=== PATIENT | female | born 1975 | race Caucasian/White ===

== ENCOUNTER 2018-02-17 10:18 | Emergency (ER) | payer BC, OTHER ==
[~2018-02-17] VITALS: Ht 157.5 cm; Wt 61.2 kg
--- NOTE | 2018-02-17 11:31 | ED Lower Extremity ---
General Chief Complaint: Lower Extremity Stated Complaint: LEGS SWELLING/ACHEY Nursing Triage Note: pt reports going to [place] on , and tuesday started to notice swelling and tenderness to Left Lower [place] area; pt reports no worsening, but no improvement in "aches" or swelling. Mild edema noted when compared to RLE. pt amb into exam room without difficulty. Nursing Sepsis Screen: No Definite Risk Source: patient Exam Limitations: no limitations History of Present Illness Date Seen by Provider: Feb 17, 2018 Time Seen by Provider: 11:27 Initial Comments This 43-year-old white female presents with a complaint of fullness and pain in her left calf after traveling by air back from [place] this last week. The patient has noted persistent aching in the calf. The patient has noted some mild edema in the left lower extremity when compared to the right. Patient has been able to weight-bear. She denies a history of blood clots. There is no family history of coagulopathies. Patient denies shortness of breath or chest pain. She has had no hemoptysis. Allergies and Home Medications Allergies Coded Allergies: No Known Drug Allergies (Unverified , 02/17/18) Home Medications No Active Prescriptions or Reported Meds Patient Home Medication List Home Medication List Reviewed: Yes Constitutional: No chills, No fever EENTM: No hearing loss Respiratory: No cough, No short of breath Cardiovascular: No chest pain Gastrointestinal: No abdominal pain, No nausea, No vomiting Genitourinary: No dysuria, No frequency : No Control/STD Prophylaxis: IUD Musculoskeletal: No back pain, No joint swelling Skin: No change in color, No rash Psychiatric/Neurological: Denies Anxiety, Denies Depressed Past Fhaawsr-[id number]-Yedndb Hx Patient Social History Alcohol Use: Rarely Uses Recreational Drug Use: No Smoking Status: Current Everyday Smoker Type Used: Cigarettes 2nd Hand Smoke Exposure: Yes Recent Foreign Travel: No Contact w/Someone Who Travel: No Recent Infectious Disease Expo: No Recent Hopitalizations: No Immunizations Up To Date Tetanus Booster (TDap): Less than 5yrs Seasonal Allergies Seasonal Allergies: Yes Past Medical History Tubal Ligation Respiratory: No Cardiac: No Neurological: Yes Headaches /Migraines : No FINE ARTIST History: Tubal Ligation Genitourinary: No Gastrointestinal: No Musculoskeletal: No Endocrine: No HEENT: No Cancer: No Psychosocial: No Integumentary: No Blood Disorders: No Physical Exam Vital Signs Vital Signs - First Documented 02/17/18 11:06 Temp 98.3 Pulse 95 Resp 18 B/P (MAP) 146/95 (112) Pulse Ox 97 O2 Delivery Room Air Capillary Refill : Less Than 3 Seconds General Appearance: WD/WN, no apparent distress HEENT: normal ENT inspection Neck: normal inspection Cardiovascular: regular rate, rhythm, other (there is slight edema of the left lower extremity below the knee when compared to the right.) Respiratory: chest non-tender, lungs clear, normal breath sounds, no respiratory distress, no accessory muscle use Gastrointestinal: normal bowel sounds, non tender, soft Back: normal inspection, no CVA tenderness Legs: left leg swelling (there is slight swelling of the left leg below the knee.) Neurologic/Tendon: normal sensation, normal motor functions Neurologic/Psychiatric: no motor/sensory deficits, alert, normal mood/affect, oriented x 3 Skin: normal color, warm/dry Progress/Results/Core Measures My Orders Orders - MELISSA SCOTT MD Venous Lower Ext Lt (02/17/18 11:13) Vital Signs/I&O 02/17/18 11:06 Temp 98.3 Pulse 95 Resp 18 B/P (MAP) 146/95 (112) Pulse Ox 97 O2 Delivery Room Air Blood Pressure Mean: 112 Progress Note : Time: 11:40 Progress Note Ultrasound of the patient's left lower extremity film demonstrated no evidence of DVT. Patient was informed of the results and reassured. Recommended ibuprofen and Tylenol with some heating pads as needed for the left lower extremity for symptomatic relief. Departure Impression Primary Impression: Calf pain Qualified Codes: M79.662 - Pain in left lower leg Disposition: 01 HOME, SELF-CARE Condition: Unchanged Departure-Patient Inst. Decision time for Depature: 11:46 Referrals: NO,LOCAL PHYSICIAN (PCP) Primary Care Physician Patient Instructions: Lower Extremity Muscle Strain Add. Discharge Instructions: Ibuprofen and/or Tylenol for pain. Moist heat to the left lower extremity for symptomatic relief. Close follow-up with your doctor Tuesday. Have any residual discomfort. Return if any problems or questions. All discharge instructions reviewed with patient and/or family. Voiced understanding. Scripts No Active Prescriptions or Reported Meds MELISSA SCOTT MD Feb 17, 2018 11:31
--- NOTE | 2018-02-17 11:49 | Diagnostic Imaging Report ---
INDICATION: Left leg pain and swelling. EXAMINATION: Grayscale and color Doppler evaluation of the deep veins of the left lower extremity were performed with waveform analysis. FINDINGS: Continuous venous flow is present. No intraluminal filling defect is identified. There is normal compressibility and response to augmentation. No abnormal perivascular fluid collection is identified. IMPRESSION: No ultrasound evidence of left lower extremity deep venous thrombosis. Dictated by: Dictated on workstation # [id number]
[2018-02-17 12:48] VITALS: BP 123/90
== END 2018-02-17 12:48 | disposition home or self-care (01) ==
LOC: ER 10:23
DX: M79.662 Pain in left lower leg (principal); G43.909 Migraine, unspecified, not intractable, without status migrainosus; F17.210 Nicotine dependence, cigarettes, uncomplicated; Z98.51 Tubal ligation status